=== PATIENT | female | born 1970 | race Caucasian/White ===

== ENCOUNTER 2018-01-15 21:23 | Emergency (ER) | payer BC ==
[~2018-01-15] VITALS: Ht 175.3 cm; Wt 116.9 kg
[~2018-01-15 21:23] MED LIST: NOHOMEMEDS
[2018-01-15 21:53] LABS: HEMATOCRIT 41.5 % (36.0-46.0); HEMOGLOBIN 13.7 G/DL (11.9-15.5); MCH 28.1 PG (29.0-34.0); PLATELET COUNT 254 K/uL (156-360); RBC DIS.WIDTH-CV 12.9 % (11.8-14.6); RBC DIS.WIDTH-SD 39.8 % (39-53); RED BLOOD COUNT 4.88 M/uL (3.80-5.20)
[2018-01-15 22:09] LABS: CHLORIDE 106 mEq/L (99-109); POTASSIUM 4.1 mEq/L (3.7-5.4); SODIUM 140 mEq/L (136-147)
[2018-01-15 22:10] LABS: GLUCOSE 95 mg/dL (70-99)
[2018-01-15 22:14] LABS: GFR ESTIMATE (CALCULATED) > 59 mL/min/
[2018-01-15 22:15] LABS: UREA NITROGEN (BUN) 14 mg/dL (9-23)
[2018-01-15 22:19] LABS: TROP-I INTERPRETATION NEGATIVE; TROPONIN-I < 0.01 ng/mL (0.0-0.30)
[2018-01-16 01:35] LABS: INTER. NORMALIZED RATIO 1.1
[2018-01-16 01:37] LABS: D-DIMER ELISA < 150.00 ng/mLDDU (<230); PTT 29.2 SEC (25-37)
[2018-01-16 01:39] LABS: TOTAL PROTEIN 6.7 g/dL (6.4-8.3)
[2018-01-16 01:41] LABS: TOTAL BILIRUBIN 0.2 mg/dL (0.0-1.0)
[2018-01-16 01:42] LABS: ALKALINE PHOSPHATASE 83 IU/L (3-129)
[2018-01-16 01:44] LABS: AST (GOT) 12 IU/L (2-34)
[2018-01-16 01:45] LABS: ALT (GPT) 13 IU/L (3-49); DIRECT BILIRUBIN 0.2 mg/dL (0.0-0.3)
[2018-01-16 01:46] LABS: LIPASE 54 U/L (1.0-51.0)
[2018-01-16 01:50] LABS: TROP-I INTERPRETATION NEGATIVE; TROPONIN-I < 0.01 ng/mL (0.0-0.30)
[2018-01-16] MEDS ORDERED: PEPCID20 MG PO (02:18)
[2018-01-16 02:27] VITALS: BP 148/78
== END 2018-01-16 02:36 | disposition home or self-care (01) ==
LOC: EME 21:23
PROVIDERS: Emergency Medicine
DX: R07.89 Other chest pain (principal); G43.909 Migraine, unspecified, not intractable, without status migrainosus; Z87.891 Personal history of nicotine dependence; Z88.0 Allergy status to penicillin
CPT/HCPCS: 71046; 80048; 80076; 83690; 84484; 85027; 85379; 85610; 85730; 93005